=== PATIENT | male | born 1985 | race Caucasian/White ===

== ENCOUNTER → 2020-06-10 | Outpatient (CLI) | payer OTHER | END | disposition home or self-care (01) | LOC: CFH 07:01 | PROVIDERS: ATTEND Internal Medicine Clinical Cardiac Electrophysiology | DX: I49.1 Atrial premature depolarization (principal); R00.2 Palpitations; Z82.79 Family history of other congenital malformations, deformations and chromosomal abnormalities; Z82.49 Family history of ischemic heart disease and other diseases of the circulatory system | CPT/HCPCS: 78452; 93017; 93306; A9502 ==

== ENCOUNTER 2020-06-15 11:02 | Day surgery (SDC) | payer OTHER ==
[~2020-06-15] VITALS: Ht 188 cm; Wt 90.9 kg
[2020-06-15 11:26] VITALS: BP 132/82
[2020-06-15] MEDS ORDERED: ALBU8.5H8 INH (11:26)
[2020-06-15] MEDS ORDERED: SODIUM CHLORIDE 0.9% 1,000 ML IV SCH (11:30)
[2020-06-15 11:47] LABS: BASOPHILS % (AUTO) 1 % (0-1); EOSINOPHILS % (AUTO) 1 % (1-7); LYMPHOCYTES % (AUTO) 41 % (22-44); MEAN CORPUSCULAR HEMOGLOBIN 29.9 pg (27.5-34.5); MEAN CORPUSCULAR HGB CONC 34.4 g/dL (33.2-36.2); MEAN PLATELET VOLUME 9.2 fL (7.4-10.4); MONOCYTES % (AUTO) 9 % (2-9); NEUTROPHILS % (AUTO) 48 % (42-75); PLATELET COUNT 195 x10^3/uL (130-400); RED BLOOD COUNT 4.81 x10^6/uL (4.38-5.82); RED CELL DISTRIBUTION WIDTH 13.2 % (9.4-14.8)
[2020-06-15 11:48] LABS: MD NO
[2020-06-15 11:54] LABS: ANION GAP 5 mmol/L (5-15); CALCIUM 8.9 mg/dL (8.5-10.1); CHLORIDE 110 mmol/L (98-107); INTERNATIONAL NORMALIZED RATIO 1.01 (0.93-1.1); PROTHROMBIN TIME 10.8 Seconds (9.6-11.5)
[2020-06-15 12:02] LABS: CREATININE 1.02 mg/dL (0.7-1.3)
[2020-06-15] MEDS ORDERED: MIDAZOLAM 1 MG/ML, 2ML ONE (12:10)
[2020-06-15] MEDS ORDERED: LIDOCAINE 2%, 20ML ONE (12:10)
[2020-06-15] MEDS ORDERED: ISOPROTERENOL 0.2MG/ML, 5ML ONE (12:10)
[2020-06-15] MEDS ORDERED: ADENOSINE 6 MG/2 ML ONE (12:10)
[2020-06-15] MEDS ORDERED: FENTANYL PF 100 MCG/2ML ONE (12:10)
== END 2020-06-15 19:08 | disposition home or self-care (01) ==
LOC: CACL 11:02 → 5SO 15:35 → CACL 19:08
PROVIDERS: ATTEND Internal Medicine Clinical Cardiac Electrophysiology
DX: R00.2 Palpitations (principal); I47.1 Supraventricular tachycardia; I48.91 Unspecified atrial fibrillation; I10 Essential (primary) hypertension; J45.909 Unspecified asthma, uncomplicated; Z79.01 Long term (current) use of anticoagulants; Z79.899 Other long term (current) drug therapy
CPT/HCPCS: 36415; 71046; 80048; 85025; 85610; 93005; 93613; 93620; 93621; 93623; 99156; 99157; C1730; C1894; C2630; J0153; J2250; J3010; G0378

== ENCOUNTER 2020-07-28 12:00 | Day surgery (SDC) | payer OTHER ==
[~2020-07-28] VITALS: Ht 193 cm; Wt 100.0 kg
[~2020-07-28 12:00] MED LIST: ALBU8.5H8 INH
[2020-07-28] MEDS ORDERED: LIDOCAINE 2%, 20ML ONE (12:46)
== END 2020-07-28 13:33 | disposition home or self-care (01) ==
LOC: CACL 12:00
PROVIDERS: ATTEND Internal Medicine Clinical Cardiac Electrophysiology
DX: R00.2 Palpitations (principal); I47.1 Supraventricular tachycardia
CPT/HCPCS: 33285; C1764

== ENCOUNTER 2020-10-01 13:17 | Emergency (ER) | payer OTHER ==
[~2020-10-01] VITALS: Ht 188 cm; Wt 94.6 kg
[2020-10-01 13:23] VITALS: BP 133/103
[2020-10-01 13:50] LABS: BASOPHILS % (AUTO) 1 % (0-1); EOSINOPHILS % (AUTO) 1 % (1-7); LYMPHOCYTES % (AUTO) 39 % (22-44); MEAN CORPUSCULAR HEMOGLOBIN 30.5 pg (27.5-34.5); MEAN CORPUSCULAR HGB CONC 34.6 g/dL (33.2-36.2); MEAN PLATELET VOLUME 9.1 fL (7.4-10.4); MONOCYTES % (AUTO) 7 % (2-9); NEUTROPHILS % (AUTO) 52 % (42-75); PLATELET COUNT 196 x10^3/uL (130-400); RED BLOOD COUNT 4.72 x10^6/uL (4.38-5.82); RED CELL DISTRIBUTION WIDTH 13.3 % (9.4-14.8)
[2020-10-01 13:57] LABS: ALBUMIN 4.2 g/dL (3.4-5.0); ANION GAP 5 mmol/L (5-15); CALCIUM 8.8 mg/dL (8.5-10.1); CHLORIDE 110 mmol/L (98-107); CREATININE 1.06 mg/dL (0.7-1.3)
--- NOTE | 2020-10-01 14:50 | NUR ---
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
== END 2020-10-01 14:52 | disposition left against medical advice (07) ==
LOC: ED 14:45
DX: R20.2 Paresthesia of skin (principal); R42 Dizziness and giddiness; R94.31 Abnormal electrocardiogram [ECG] [EKG]
CPT/HCPCS: 36415; 80048; 82040; 85025; 93005; 99284